=== PATIENT | female | born 1975 | race Asian ===

== ENCOUNTER 2021-11-08 07:25 | Outpatient (CLI) | payer OTHER | END 2021-11-08 07:26 | disposition home or self-care (01) | LOC: NUCLEAR 07:25 | PROVIDERS: ATTEND Internal Medicine Rheumatology | DX: M06.4 Inflammatory polyarthropathy (principal); M46.1 Sacroiliitis, not elsewhere classified | CPT/HCPCS: 78315; A9503 ==

== ENCOUNTER 2022-07-21 11:50 | Outpatient (CLI) | payer OTHER | END 2022-07-21 12:01 | disposition home or self-care (01) | LOC: SONOGRAMA 11:50 | PROVIDERS: ATTEND General Practice | DX: N20.0 Calculus of kidney (principal); R10.0 Acute abdomen; R10.30 Lower abdominal pain, unspecified ==